=== PATIENT | female | born 1950 | race African-American/Black ===

== ENCOUNTER 2022-03-23 09:54 | Outpatient (CLI) | payer OTHER | END 2022-03-23 09:55 | disposition home or self-care (01) | LOC: BICMAMMO 09:54 | PROVIDERS: ATTEND Family Medicine | DX: Z12.31 Encounter for screening mammogram for malignant neoplasm of breast (principal) | CPT/HCPCS: 77063; 77067 ==

== ENCOUNTER 2023-02-09 10:09 | Inpatient (IN) | payer MEDICARE, MEDICAID ==
[2023-02-09 11:31] LABS: #Eosinphils 0.1 thou/uL (0.0-0.7); #Monocytes 0.3 thou/uL (0.11-0.59); #Neutrophils 1.9 thou/uL (1.40-6.50); %Basophils 0.2 % (0.0-1.0); %Lymphocytes 46.4 % (21.0-51.0); %Monocytes 6.7 % (0.0-10.0); %Neutrophils 43.5 % (42.0-75.0); Hemoglobin 5.7 g/dL (12.0-16.0); Mean Corpuscular HGB CONC 29.5 g/dL (32.0-36.0); Mean Corpuscular Hemoglobin 19.7 pg (27.0-31.0); Mean Corpuscular Volume 66.8 fl (78.0-98.0); Mean Platelet Volume 9.6 fL (7.4-10.4); Platelet Count 202 10x3/uL (130-400); RBC Distribution Width 21.2 % (11.5-14.5); Red Blood Cell (RBC) Count 2.89 mill/uL (4.20-5.40); White Blood Cell (WBC) Count 4.4 10x3/uL (4.8-10.8)
[2023-02-09 11:46] LABS: INR-International Normal Ratio 1.1; Prothrombin Time 14.4 sec (12.0-14.7)
[2023-02-09 11:47] LABS: PTT 29.6 sec (22.9-36.1)
[2023-02-09 12:00] LABS: ALT (SGPT) 16 U/L (8-55); AST (SGOT) 24 U/L (5-34); Albumin 3.6 g/dL (3.4-4.8); Alkaline Phosphatase 103 U/L (40-110); BUN (Urea Nitrogen) 6 mg/dL (9.8-20.1); Bilirubin, Total 0.5 mg/dL (0.2-1.2); Calc. Creatinine Clearance 0 mL/min (70-130); Calcium 8.6 mg/dL (7.8-10.44); Carbon Dioxide 23 mmol/L (23-31); Chloride 107 mmol/L (98-107); Estimated GFR 83; Globulin 3.4 g/dL (2.4-3.5); Glucose 104 mg/dL (83-110); Potassium 4.4 mmol/L (3.5-5.1)
[2023-02-09 12:13] LABS: Sodium 136 mmol/L (136-145)
[2023-02-09 12:14] LABS: Anisocytosis MODERATE=16-30 cells HPF (0-5); CellaVision Operator ID LAB.GE; Hypochromia MODERATE=16-30 cells HPF (0-5); Microcytosis MODERATE=15-30 cells HPF (0-5); Platelet Adequacy Comment Platelets Normal; Polychromasia MODERATE = 3-4 cells HPF (0-2); Reflex for Review?? YES; Target Cells SLIGHT = 2-5 cells HPF (0-1); Tear Drops SLIGHT = 2-5 cells HPF (0-1)
[2023-02-09] MEDS ORDERED: Ondansetron PF 4 MG/2 ML Vial ONE (12:19)
[2023-02-09] MEDS ORDERED: Pantoprazole 40 MG VIAL ONE ×2 (12:19→12:20)
[2023-02-09 12:26] LABS: Anion Gap 10 mmol/L (10-20)
[2023-02-09 12:52] LABS: CK (CPK) 90 U/L (29-168); Lipase 14 U/L (8-78)
[2023-02-09] MEDS ORDERED: Acetaminophen 500 MG TAB ONE (13:32)
[2023-02-09 15:10] LABS: Bacteria/HPF None Seen HPF (None Seen); Bilirubin Negative (Negative); Blood, Urine Negative (Negative); CAUTI Indications for Culture Pelvic or flank pain; Clarity Clear (Clear); Glucose, Urine (Dipstick) Normal (Negative); Ketone, Urine Negative (Negative); Leukocyte Negative Leu/uL (Negative); Nitrite Negative (Negative); Protein, Urine (Dipstick) Negative (Neg-Trace); RBC/HPF 0-3 HPF (0-3); Specific Gravity, Urine 1.009 (1.002-1.036); Squamous Epithelial 0-3 HPF (0-3); Urobilinogen Normal mg/dL (Less than 2); WBC/HPF 0-3 HPF (0-3); pH, Urine 6.5 (5.0-9.0)
[2023-02-09 15:19] LABS: Urine Culture Reflex No No
[2023-02-09 16:22] VITALS: BMI 28.6
[2023-02-09] MEDS ORDERED: Ondansetron ODT 4 MG TAB SL PRN (16:30)
[2023-02-09] MEDS ORDERED: Ondansetron PF 4 MG/2 ML Vial IVP PRN ×2 (16:30→19:12)
[2023-02-09 17:37] LABS: Hemoglobin 7.9 g/dL (12.0-16.0); Platelet Count 167 10x3/uL (130-400)
[2023-02-09] MEDS ORDERED: Acetaminophen 325 MG TAB PO PRN (19:12)
[2023-02-09] MEDS ORDERED: Acetaminophen 650 MG Suppository PR PRN (19:12)
[2023-02-09] MEDS ORDERED: Ondansetron ODT 4 MG TAB PO PRN (19:12)
[2023-02-09] MEDS ORDERED: Dextrose 5% in Water 1,000 ML IV PRN (19:15)
[2023-02-09] MEDS ORDERED: Dextrose 50% Abboject 50 ML SYRINGE SLOW IVP PRN (19:15)
[2023-02-09] MEDS ORDERED: Glucagon 1 MG/ML KIT IM PRN (19:15)
[2023-02-09] MEDS ORDERED: HumaLOG 300 UNITS/3 ML VIAL SC PRN ×2 (19:15)
[2023-02-09] MEDS ORDERED: Mometasone 200 MCG/Formoterol 5 MCG 120 PUFF INHALER INH SCH (19:45)
[2023-02-09] MEDS: Sodium Chloride 0.9% 1,000 ML IV SCH (19:48)
[2023-02-09] MEDS: hydrALAZINE 25 MG TAB PO SCH (19:48)
[2023-02-09] MEDS ORDERED: carBAMazepine 200 MG TAB PO SCH (20:00)
[2023-02-09] MEDS ORDERED: Pantoprazole 40 MG VIAL IVP SCH (21:00)
[2023-02-09] MEDS: Pantoprazole 40 MG VIAL IVP SCH (21:37)
[2023-02-09 22:40] LABS: Iron 349 ug/dL (50-170)
[2023-02-09 22:48] LABS: Anion Gap 13 mmol/L (10-20); BUN (Urea Nitrogen) 7 mg/dL (9.8-20.1); Calc. Creatinine Clearance 89 mL/min (70-130); Calcium 8.4 mg/dL (7.8-10.44); Carbon Dioxide 21 mmol/L (23-31); Chloride 107 mmol/L (98-107); Estimated GFR 80; Glucose 99 mg/dL (83-110); Iron 352 ug/dL (50-170); Potassium 4.9 mmol/L (3.5-5.1); Sodium 136 mmol/L (136-145)
[2023-02-09 23:13] LABS: Transferrin, Serum 381 mg/dL (173-360)
[2023-02-09 23:57] LABS: Hemoglobin 7.5 g/dL (12.0-16.0)
[2023-02-10 01:30] LABS: Iron Binding Capacity, Total 494 mcg/dL (265-497)
[2023-02-10] MEDS ORDERED: hydrOXYzine 25 MG TAB PO PRN (02:25)
[2023-02-10] MEDS: Mometasone 200 MCG/Formoterol 5 MCG 120 PUFF INHALER INH SCH ×2 (04:06→18:26)
[2023-02-10] MEDS: Ipratropium/Albuterol 3 ML NEB NEB PRN ×2 (04:09→18:27)
[2023-02-10 05:39] LABS: Hemoglobin 7.5 g/dL (12.0-16.0)
[2023-02-10] MEDS: carBAMazepine 200 MG TAB PO SCH ×2 (08:34→17:57)
[2023-02-10] MEDS: hydrALAZINE 25 MG TAB PO SCH ×2 (08:34→20:51)
[2023-02-10] MEDS: Pantoprazole 40 MG VIAL IVP SCH ×2 (08:35→20:52)
[2023-02-10] MEDS: Sodium Chloride 0.9% 1,000 ML IV SCH (09:38)
[2023-02-10] MEDS: HYDROcodone/Acetaminophen 10/325 mg Tablet PO PRN ×2 (11:53→20:50)
[2023-02-10] MEDS ORDERED: Guaifenesin DM 100-10/5 ML UDCUP PO PRN (13:36)
[2023-02-10 15:33] LABS: Hemoglobin 8.6 g/dL (12.0-16.0)
[2023-02-10] MEDS: Losartan 25 MG TAB PO SCH (20:51)
[2023-02-10] MEDS: Simvastatin 10 MG TAB PO SCH (20:51)
[2023-02-10] MEDS ORDERED: GoLYTELY 4,000 ml Bottle PO SCH (21:30)
[2023-02-11 06:00] LABS: Anion Gap 17 mmol/L (10-20); BUN (Urea Nitrogen) 5 mg/dL (9.8-20.1); Calc. Creatinine Clearance 95 mL/min (70-130); Calcium 8.9 mg/dL (7.8-10.44); Carbon Dioxide 22 mmol/L (23-31); Chloride 104 mmol/L (98-107); Estimated GFR 87; Glucose 100 mg/dL (83-110); Potassium 4.1 mmol/L (3.5-5.1); Sodium 139 mmol/L (136-145)
[2023-02-11 06:15] LABS: Hep B Surf Ag Non-Reactive S/CO (NonReactive)
[2023-02-11 06:17] LABS: HBSAB Concentration 52.63 mIU/mL; Hep B Surf AB Reactive (NonReactive)
[2023-02-11 06:33] LABS: Hemoglobin 9.2 g/dL (12.0-16.0); Mean Corpuscular HGB CONC 31.4 g/dL (32.0-36.0); Mean Corpuscular Volume 73.3 fl (78.0-98.0); Mean Platelet Volume 10.3 fL (7.4-10.4); Platelet Count 187 10x3/uL (130-400); White Blood Cell (WBC) Count 6.4 10x3/uL (4.8-10.8)
[2023-02-11] MEDS: Mometasone 200 MCG/Formoterol 5 MCG 120 PUFF INHALER INH SCH ×2 (08:18→18:26)
[2023-02-11] MEDS: Losartan 25 MG TAB PO SCH ×2 (09:15→20:20)
[2023-02-11] MEDS: Pantoprazole 40 MG VIAL IVP SCH ×3 (09:15→20:20)
[2023-02-11] MEDS: hydrALAZINE 25 MG TAB PO SCH ×2 (09:15→20:20)
[2023-02-11] MEDS: carBAMazepine 200 MG TAB PO SCH ×2 (09:15→16:23)
[2023-02-11] MEDS ORDERED: Promethazine HCl 25 MG/ML VIAL IM PRN (10:59)
[2023-02-11] MEDS ORDERED: Ondansetron HCl/PF 4 MG/2 ML Vial IVP PRN (10:59)
[2023-02-11] MEDS ORDERED: PROPOFOL 200 MG/20 ML VIAL ONE (11:11)
[2023-02-11] MEDS ORDERED: PHENYLEPHRINE-NS 100 MCG/ML 10 ML SYRINGE ONE (11:11)
[2023-02-11] MEDS ORDERED: Lidocaine 1% PF 5 ML VIAL ONE ×2 (11:11)
[2023-02-11 13:37] LABS: EliA Vaculitis New Method **** NEW METHOD ****; Mitochondrial Ab 0.9 U/mL (<4 Negative)
[2023-02-11] MEDS: HYDROcodone/Acetaminophen 10/325 mg Tablet PO PRN ×2 (15:05→20:22)
[2023-02-11] MEDS: Simvastatin 10 MG TAB PO SCH (20:20)
[2023-02-12 04:20] LABS: #Eosinphils 0.1 thou/uL (0.0-0.7); #Monocytes 0.5 thou/uL (0.11-0.59); #Neutrophils 2.6 thou/uL (1.40-6.50); %Basophils 0.4 % (0.0-1.0); %Lymphocytes 41.9 % (21.0-51.0); %Monocytes 8.2 % (0.0-10.0); %Neutrophils 47.3 % (42.0-75.0); Hemoglobin 7.7 g/dL (12.0-16.0); Mean Corpuscular Hemoglobin 22.7 pg (27.0-31.0); Mean Corpuscular Volume 73.2 fl (78.0-98.0); Mean Platelet Volume 9.5 fL (7.4-10.4); Platelet Count 175 10x3/uL (130-400); RBC Distribution Width 25.4 % (11.5-14.5); Red Blood Cell (RBC) Count 3.39 mill/uL (4.20-5.40); White Blood Cell (WBC) Count 5.6 10x3/uL (4.8-10.8)
[2023-02-12 04:21] LABS: Hemoglobin 7.8 g/dL (12.0-16.0); Mean Corpuscular HGB CONC 30.8 g/dL (32.0-36.0); Mean Corpuscular Hemoglobin 22.3 pg (27.0-31.0); Mean Corpuscular Volume 72.5 fl (78.0-98.0); Mean Platelet Volume 9.4 fL (7.4-10.4); Platelet Count 189 10x3/uL (130-400); RBC Distribution Width 25.4 % (11.5-14.5); Red Blood Cell (RBC) Count 3.49 mill/uL (4.20-5.40); White Blood Cell (WBC) Count 5.5 10x3/uL (4.8-10.8)
[2023-02-12 04:41] LABS: Anion Gap 13 mmol/L (10-20); BUN (Urea Nitrogen) 8 mg/dL (9.8-20.1); Calc. Creatinine Clearance 85 mL/min (70-130); Calcium 8.4 mg/dL (7.8-10.44); Carbon Dioxide 24 mmol/L (23-31); Chloride 108 mmol/L (98-107); Estimated GFR 75; Glucose 103 mg/dL (83-110); Potassium 3.9 mmol/L (3.5-5.1); Sodium 141 mmol/L (136-145)
[2023-02-12 04:49] LABS: Anisocytosis MODERATE=16-30 cells HPF (0-5); CellaVision Operator ID lab.abc; Hypochromia SLIGHT = 6-15 cells HPF (0-5); Large Platelets 4.1 % (0-5); Microcytosis SLIGHT = 6-15 cells HPF (0-5); Platelet Adequacy Comment Platelets Normal; Polychromasia SLIGHT = 2-3 cells HPF (0-2); Smudge Cells 29.6 %
[2023-02-12] MEDS: Mometasone 200 MCG/Formoterol 5 MCG 120 PUFF INHALER INH SCH (07:26)
[2023-02-12 08:34] VITALS: TEMP 98
[2023-02-12] MEDS: hydrALAZINE 25 MG TAB PO SCH (08:55)
[2023-02-12] MEDS: Losartan 25 MG TAB PO SCH (08:55)
[2023-02-12] MEDS: carBAMazepine 200 MG TAB PO SCH (08:55)
[2023-02-12] MEDS: Pantoprazole 40 MG VIAL IVP SCH ×2 (08:56→09:58)
[2023-02-12] MEDS: HYDROcodone/Acetaminophen 10/325 mg Tablet PO PRN (10:36)
[2023-02-12 13:30] VITALS: BP 138/69
[2023-02-14 17:13] LABS: Smooth Muscle Total ABS 11 Units (0-19)
[2023-02-17 08:39] LABS: Alpha-1-Antitrypsin 206 mg/dL (101-187)
== END 2023-02-12 11:59 | disposition home or self-care (01) | DRG 378 ==
LOC: ERS 10:09 → T4-B 16:16 → 2SW 21:06
PROVIDERS: ADMIT Emergency Medicine; ATTEND Internal Medicine
PROC: 30233N1 Transfusion of Nonautologous Red Blood Cells into Peripheral Vein, Percutaneous Approach (ICD-10-PCS; principal; 2023-02-09)
PROC: 0W3P8ZZ Control Bleeding in Gastrointestinal Tract, Via Natural or Artificial Opening Endoscopic (ICD-10-PCS; 2023-02-11)
PROC: 0W3P8ZZ Control Bleeding in Gastrointestinal Tract, Via Natural or Artificial Opening Endoscopic (ICD-10-PCS; 2023-02-11)
DX: K31.811 Angiodysplasia of stomach and duodenum with bleeding (principal); D62 Acute posthemorrhagic anemia; I25.10 Atherosclerotic heart disease of native coronary artery without angina pectoris; E11.9 Type 2 diabetes mellitus without complications; E78.5 Hyperlipidemia, unspecified; I10 Essential (primary) hypertension; G43.909 Migraine, unspecified, not intractable, without status migrainosus; D50.9 Iron deficiency anemia, unspecified; K74.60 Unspecified cirrhosis of liver; J44.9 Chronic obstructive pulmonary disease, unspecified; Z95.1 Presence of aortocoronary bypass graft; Z98.890 Other specified postprocedural states; Z88.8 Allergy status to other drugs, medicaments and biological substances; Z88.1 Allergy status to other antibiotic agents; Z79.82 Long term (current) use of aspirin; Z79.899 Other long term (current) drug therapy; Z87.891 Personal history of nicotine dependence
CPT/HCPCS: 36415; 36416; 36430; 71045; 76705; 80048; 80053; 81001; 81256; 82103; 82105; 82274; 82550; 82728; 83516; 83540; 83550; 83690; 84466; 84484; 85014; 85018; 85025; 85027; 85060; 85610; 85730; 86015; 86706; 86708; 86850; 86900; 86901; 87340; 87522; 93005; 93010; 94640; 94760; C9113; J2405; J2704; J7050; J7611; J7620; P9016

== ENCOUNTER 2023-02-24 10:43 | Inpatient (IN) | payer MEDICARE, MEDICAID ==
[~2023-02-24 10:43] MED LIST: Iopamidol 370 76% 100 ML VIAL ONE
[2023-02-24] MEDS ORDERED: Midazolam HCl 2 mg/2 ml Vial ONE (11:16)
[2023-02-24] MEDS ORDERED: Adenosine 6 MG/2 ML VIAL ONE (11:58)
[2023-02-24] MEDS ORDERED: fentaNYL 50 mcg/mL 1 mL Vial ONE (11:59)
[2023-02-24] MEDS ORDERED: Morphine 4 MG/ML VIAL SLOW IVP PRN (13:27)
[2023-02-24] MEDS ORDERED: Sodium Chloride 0.9% 1,000 ML IV SCH (13:30)
[2023-02-24] MEDS ORDERED: Morphine 4 MG/ML VIAL ONE (13:37)
[2023-02-24 14:16] LABS: #Monocytes 0.5 thou/uL (0.11-0.59); #Neutrophils 3.5 thou/uL (1.40-6.50); %Basophils 0.2 % (0.0-1.0); %Eosinophils 0.3 % (0.0-10.0); %Lymphocytes 36.2 % (21.0-51.0); %Monocytes 7.6 % (0.0-10.0); %Neutrophils 55.4 % (42.0-75.0); Hemoglobin 7.8 g/dL (12.0-16.0); Mean Corpuscular HGB CONC 30.2 g/dL (32.0-36.0); Mean Corpuscular Hemoglobin 21.6 pg (27.0-31.0); Mean Corpuscular Volume 71.5 fl (78.0-98.0); Mean Platelet Volume 9.8 fL (7.4-10.4); Platelet Count 247 10x3/uL (130-400); RBC Distribution Width 26.2 % (11.5-14.5); Red Blood Cell (RBC) Count 3.61 mill/uL (4.20-5.40); White Blood Cell (WBC) Count 6.2 10x3/uL (4.8-10.8)
[2023-02-24 14:36] LABS: INR-International Normal Ratio 1.1; Prothrombin Time 14.7 sec (12.0-14.7)
[2023-02-24 14:39] LABS: ALT (SGPT) 28 U/L (8-55); AST (SGOT) 171 U/L (5-34); Albumin 3.2 g/dL (3.4-4.8); Alkaline Phosphatase 88 U/L (40-110); Anion Gap 12 mmol/L (10-20); BUN (Urea Nitrogen) 11 mg/dL (9.8-20.1); Bilirubin, Total 0.6 mg/dL (0.2-1.2); Calc. Creatinine Clearance 0 mL/min (70-130); Calcium 8.3 mg/dL (7.8-10.44); Carbon Dioxide 23 mmol/L (23-31); Chloride 105 mmol/L (98-107); Estimated GFR 93; Globulin 2.8 g/dL (2.4-3.5); Glucose 127 mg/dL (83-110); PTT 101.9 sec (22.9-36.1); Potassium 3.8 mmol/L (3.5-5.1); Sodium 136 mmol/L (136-145)
[2023-02-24 15:24] LABS: CKMB 367.1 ng/mL (0-6.6)
[2023-02-24] MEDS ORDERED: HumaLOG 300 UNITS/3 ML VIAL SC PRN ×2 (15:58)
[2023-02-24] MEDS ORDERED: Dextrose 50% Abboject 50 ML SYRINGE SLOW IVP PRN (15:58)
[2023-02-24] MEDS ORDERED: Glucagon 1 MG/ML KIT IM PRN (15:58)
[2023-02-24] MEDS ORDERED: Dextrose 5% in Water 1,000 ML IV PRN (15:58)
[2023-02-24] MEDS ORDERED: Electrolyte Replacement Protocol 1 EACH FS SCH (16:00)
[2023-02-24] MEDS ORDERED: Ipratropium Bromide 2.5 ml Neb NEB PRN (16:02)
[2023-02-24] MEDS: Morphine 2 MG/ML VIAL SLOW IVP PRN (16:36)
[2023-02-24] MEDS: Carvedilol 3.125 MG TAB PO SCH (17:55)
[2023-02-24] MEDS: Mometasone 200 MCG/Formoterol 5 MCG 120 PUFF INHALER INH SCH (18:37)
[2023-02-24 19:26] VITALS: BMI 26.7
[2023-02-24] MEDS ORDERED: Mag-Al 1200 mg/1200 mg/30 ML UDCUP PO SCH (20:15)
[2023-02-24] MEDS: HYDROcodone/Acetaminophen 7.5/325 mg Tablet PO PRN (21:48)
[2023-02-24 21:58] LABS: CKMB 470.6 ng/mL (0-6.6)
[2023-02-24] MEDS ORDERED: Magnesium 2 GM/50 ML(in water) 2 GM in Premix Bag 1 BAG IVPB SCH (23:00)
[2023-02-24 23:43] LABS: CKMB 453.3 ng/mL (0-6.6)
[2023-02-25] MEDS: Ondansetron PF 4 MG/2 ML Vial IVP PRN ×2 (00:06→19:08)
[2023-02-25 02:15] LABS: #Monocytes 0.8 thou/uL (0.11-0.59); #Neutrophils 5.4 thou/uL (1.40-6.50); %Basophils 0.1 % (0.0-1.0); %Eosinophils 0.4 % (0.0-10.0); %Lymphocytes 21.2 % (21.0-51.0); %Monocytes 10.4 % (0.0-10.0); %Neutrophils 67.5 % (42.0-75.0); Hemoglobin 9.1 g/dL (12.0-16.0); Mean Corpuscular HGB CONC 29.5 g/dL (32.0-36.0); Mean Corpuscular Hemoglobin 22.2 pg (27.0-31.0); Mean Platelet Volume 9.6 fL (7.4-10.4); Platelet Count 193 10x3/uL (130-400); RBC Distribution Width 27.5 % (11.5-14.5); Red Blood Cell (RBC) Count 4.09 mill/uL (4.20-5.40); White Blood Cell (WBC) Count 7.9 10x3/uL (4.8-10.8)
[2023-02-25 02:21] LABS: Mean Corpuscular Volume 75.3 fl (78.0-98.0)
[2023-02-25 03:56] LABS: ALT (SGPT) 47 U/L (8-55); AST (SGOT) 330 U/L (5-34); Albumin 3.4 g/dL (3.4-4.8); Alkaline Phosphatase 98 U/L (40-110); Anion Gap 14 mmol/L (10-20); BUN (Urea Nitrogen) 12 mg/dL (9.8-20.1); Bilirubin, Total 0.7 mg/dL (0.2-1.2); Calc. Creatinine Clearance 98 mL/min (70-130); Calcium 8.8 mg/dL (7.8-10.44); Carbon Dioxide 21 mmol/L (23-31); Cardiac Risk 1.9 (Less than 4.5); Chloride 105 mmol/L (98-107); Cholesterol 143 mg/dl (< 200 Desired); Estimated GFR 91; Globulin 3.2 g/dL (2.4-3.5); Glucose 117 mg/dL (83-110); HDL Cholesterol 77 mg/dL (>60 Neg Risk); LDL Cholesterol, Calculated 52 mg/dL; Magnesium 2.4 mg/dL (1.6-2.6); Potassium 4.5 mmol/L (3.5-5.1); Protein, Total 6.6 g/dL (5.8-8.1); Sodium 135 mmol/L (136-145); Triglycerides 70 mg/dL (Less than 150)
[2023-02-25] MEDS: Mometasone 200 MCG/Formoterol 5 MCG 120 PUFF INHALER INH SCH ×2 (07:20→18:39)
[2023-02-25] MEDS: Carvedilol 3.125 MG TAB PO SCH ×2 (08:00→18:32)
[2023-02-25] MEDS: HYDROcodone/Acetaminophen 7.5/325 mg Tablet PO PRN (09:16)
[2023-02-25] MEDS: Aspirin Chewable 81 MG TAB PO SCH (09:18)
[2023-02-25] MEDS ORDERED: Losartan 25 MG TAB PO SCH (10:00)
[2023-02-25] MEDS: Morphine 2 MG/ML VIAL SLOW IVP PRN (15:25)
[2023-02-25] MEDS: Atorvastatin Calcium 40 MG TAB PO SCH (20:37)
[2023-02-26 00:05] LABS: CKMB 418.8 ng/mL (0-6.6)
[2023-02-26] MEDS: HYDROcodone/Acetaminophen 7.5/325 mg Tablet PO PRN ×3 (01:09→21:42)
[2023-02-26 03:02] LABS: #Neutrophils 5.2 thou/uL (1.40-6.50); %Basophils 0.3 % (0.0-1.0); %Eosinophils 0.5 % (0.0-10.0); %Lymphocytes 21.1 % (21.0-51.0); %Monocytes 12.1 % (0.0-10.0); %Neutrophils 65.7 % (42.0-75.0); Mean Corpuscular HGB CONC 30.3 g/dL (32.0-36.0); Mean Corpuscular Hemoglobin 21.7 pg (27.0-31.0); Mean Corpuscular Volume 71.7 fl (78.0-98.0); Mean Platelet Volume 9.4 fL (7.4-10.4); Platelet Count 243 10x3/uL (130-400); RBC Distribution Width 26.3 % (11.5-14.5); Red Blood Cell (RBC) Count 3.68 mill/uL (4.20-5.40); White Blood Cell (WBC) Count 7.9 10x3/uL (4.8-10.8)
[2023-02-26 03:36] LABS: Anion Gap 12 mmol/L (10-20); BUN (Urea Nitrogen) 15 mg/dL (9.8-20.1); Calc. Creatinine Clearance 106 mL/min (70-130); Calcium 8.3 mg/dL (7.8-10.44); Carbon Dioxide 22 mmol/L (23-31); Chloride 106 mmol/L (98-107); Estimated GFR 93; Glucose 125 mg/dL (83-110); Potassium 4.1 mmol/L (3.5-5.1); Sodium 136 mmol/L (136-145)
[2023-02-26 04:02] LABS: Anisocytosis MODERATE=16-30 cells HPF (0-5); CellaVision Operator ID LAB.JMM; Elliptocytes SLIGHT = 2-5 cells HPF (0-1); Hypochromia MODERATE=16-30 cells HPF (0-5); Macrocytosis SLIGHT = 6-15 cells HPF (0-5); Platelet Adequacy Comment Platelets Normal
[2023-02-26] MEDS: Mometasone 200 MCG/Formoterol 5 MCG 120 PUFF INHALER INH SCH (06:51)
[2023-02-26] MEDS: Carvedilol 3.125 MG TAB PO SCH ×2 (08:00→17:00)
[2023-02-26] MEDS: Losartan 25 MG TAB PO SCH (09:59)
[2023-02-26] MEDS: Aspirin Chewable 81 MG TAB PO SCH (10:03)
[2023-02-26 10:21] LABS: Troponin I 39.609 ng/mL (< 0.028)
[2023-02-26] MEDS: Guaifenesin DM 100-10/5 ML UDCUP PO PRN (12:39)
[2023-02-26 14:14] LABS: Hemoglobin 7.7 g/dL (12.0-16.0)
[2023-02-26] MEDS: Ipratropium Bromide 2.5 ml Neb NEB SCH (18:44)
[2023-02-26] MEDS: Mometasone 100 MCG/Formoterol 5 MCG 120 PUFF INHALER INH SCH (18:51)
[2023-02-26] MEDS: Atorvastatin Calcium 40 MG TAB PO SCH (21:42)
[2023-02-27 04:13] LABS: #Eosinphils 0.1 thou/uL (0.0-0.7); #Monocytes 0.9 thou/uL (0.11-0.59); #Neutrophils 4.4 thou/uL (1.40-6.50); %Basophils 0.3 % (0.0-1.0); %Lymphocytes 31.6 % (21.0-51.0); %Neutrophils 55.8 % (42.0-75.0); Hemoglobin 8.1 g/dL (12.0-16.0); Mean Corpuscular HGB CONC 30.3 g/dL (32.0-36.0); Mean Corpuscular Hemoglobin 21.7 pg (27.0-31.0); Mean Corpuscular Volume 71.4 fl (78.0-98.0); Mean Platelet Volume 9.5 fL (7.4-10.4); Platelet Count 229 10x3/uL (130-400); Red Blood Cell (RBC) Count 3.74 mill/uL (4.20-5.40); White Blood Cell (WBC) Count 7.8 10x3/uL (4.8-10.8)
[2023-02-27 04:43] LABS: Anion Gap 11 mmol/L (10-20); BUN (Urea Nitrogen) 15 mg/dL (9.8-20.1); Calc. Creatinine Clearance 107 mL/min (70-130); Calcium 8.1 mg/dL (7.8-10.44); Carbon Dioxide 23 mmol/L (23-31); Chloride 105 mmol/L (98-107); Estimated GFR 93; Glucose 137 mg/dL (83-110); Potassium 4.1 mmol/L (3.5-5.1); Sodium 135 mmol/L (136-145)
[2023-02-27 05:19] LABS: Anisocytosis MODERATE=16-30 cells HPF (0-5); Burr Cells SLIGHT = 2-5 cells HPF (0-1); CellaVision Operator ID lab.abc; Hypochromia SLIGHT = 6-15 cells HPF (0-5); Microcytosis SLIGHT = 6-15 cells HPF (0-5); Platelet Adequacy Comment Platelets Normal
[2023-02-27] MEDS: HYDROcodone/Acetaminophen 7.5/325 mg Tablet PO PRN ×2 (05:47→21:17)
[2023-02-27] MEDS: Mometasone 100 MCG/Formoterol 5 MCG 120 PUFF INHALER INH SCH ×2 (07:38→18:19)
[2023-02-27] MEDS: Ipratropium Bromide 2.5 ml Neb NEB SCH ×2 (07:38→18:11)
[2023-02-27] MEDS: Aspirin Chewable 81 MG TAB PO SCH (09:33)
[2023-02-27] MEDS: Carvedilol 3.125 MG TAB PO SCH ×2 (09:33→19:43)
[2023-02-27] MEDS: Losartan 25 MG TAB PO SCH (09:34)
[2023-02-27] MEDS ORDERED: Senokot 8.6 MG TAB PO PRN (19:04)
[2023-02-27] MEDS ORDERED: Polyethylene Glycol 3350 17 GM Packet PO PRN (19:04)
[2023-02-27] MEDS: Atorvastatin Calcium 40 MG TAB PO SCH (21:16)
[2023-02-27] MEDS: Docusate 100 MG CAP PO PRN (21:16)
[2023-02-28 04:11] LABS: #Eosinphils 0.1 thou/uL (0.0-0.7); #Monocytes 0.9 thou/uL (0.11-0.59); #Neutrophils 4.8 thou/uL (1.40-6.50); %Basophils 0.2 % (0.0-1.0); %Eosinophils 0.8 % (0.0-10.0); %Lymphocytes 31.2 % (21.0-51.0); %Monocytes 10.1 % (0.0-10.0); %Neutrophils 57.3 % (42.0-75.0); Mean Corpuscular HGB CONC 29.6 g/dL (32.0-36.0); Mean Corpuscular Hemoglobin 21.7 pg (27.0-31.0); Mean Corpuscular Volume 73.4 fl (78.0-98.0); Mean Platelet Volume 9.6 fL (7.4-10.4); Platelet Count 236 10x3/uL (130-400); RBC Distribution Width 26.4 % (11.5-14.5); Red Blood Cell (RBC) Count 3.68 mill/uL (4.20-5.40); White Blood Cell (WBC) Count 8.5 10x3/uL (4.8-10.8)
[2023-02-28 04:32] LABS: Anion Gap 15 mmol/L (10-20); BUN (Urea Nitrogen) 16 mg/dL (9.8-20.1); Calc. Creatinine Clearance 111 mL/min (70-130); Calcium 8.4 mg/dL (7.8-10.44); Carbon Dioxide 19 mmol/L (23-31); Chloride 105 mmol/L (98-107); Estimated GFR 94; Glucose 105 mg/dL (83-110); Sodium 135 mmol/L (136-145)
[2023-02-28 06:36] LABS: Anisocytosis MODERATE=16-30 cells HPF (0-5); Burr Cells MODERATE= 6-15 cells HPF (0-1); CellaVision Operator ID LAB.GE; Hypochromia SLIGHT = 6-15 cells HPF (0-5); Platelet Adequacy Comment Platelets Normal; Poikilocytosis SLIGHT = 6-15 cells HPF (0-5); Polychromasia SLIGHT = 2-3 cells HPF (0-2)
[2023-02-28] MEDS: Mometasone 100 MCG/Formoterol 5 MCG 120 PUFF INHALER INH SCH ×2 (07:36→18:48)
[2023-02-28] MEDS: Ipratropium Bromide 2.5 ml Neb NEB SCH ×2 (07:36→18:48)
[2023-02-28] MEDS: Carvedilol 3.125 MG TAB PO SCH ×2 (08:36→16:48)
[2023-02-28] MEDS: Empagliflozin 10 MG TAB PO SCH (08:36)
[2023-02-28] MEDS: Aspirin Chewable 81 MG TAB PO SCH (08:36)
[2023-02-28] MEDS: Docusate 100 MG CAP PO PRN (08:36)
[2023-02-28] MEDS ORDERED: Bisacodyl 10 MG SUPP PR PRN (09:07)
[2023-02-28] MEDS ORDERED: Benzonatate 100 MG CAP PO SCH (11:30)
[2023-02-28] MEDS: Benzonatate 100 MG CAP PO SCH ×3 (16:22→23:11)
[2023-02-28] MEDS: HYDROcodone/Acetaminophen 7.5/325 mg Tablet PO PRN (20:20)
[2023-02-28] MEDS: Atorvastatin Calcium 40 MG TAB PO SCH (20:21)
[2023-02-28] MEDS: Sacubitril 24MG/Valsartan 26 MG TAB PO SCH (20:21)
[2023-03-01] MEDS ORDERED: carBAMazepine 200 MG TAB PO SCH (00:45)
[2023-03-01] MEDS: Guaifenesin DM 100-10/5 ML UDCUP PO PRN (04:06)
[2023-03-01 05:49] LABS: #Eosinphils 0.1 thou/uL (0.0-0.7); #Monocytes 0.6 thou/uL (0.11-0.59); #Neutrophils 3.5 thou/uL (1.40-6.50); %Basophils 0.2 % (0.0-1.0); %Eosinophils 1.4 % (0.0-10.0); %Lymphocytes 33.5 % (21.0-51.0); %Monocytes 9.2 % (0.0-10.0); %Neutrophils 55.5 % (42.0-75.0); Mean Corpuscular HGB CONC 30.4 g/dL (32.0-36.0); Mean Corpuscular Hemoglobin 21.5 pg (27.0-31.0); Mean Corpuscular Volume 70.7 fl (78.0-98.0); Platelet Count 262 10x3/uL (130-400); RBC Distribution Width 26.1 % (11.5-14.5); Red Blood Cell (RBC) Count 3.72 mill/uL (4.20-5.40); White Blood Cell (WBC) Count 6.3 10x3/uL (4.8-10.8)
[2023-03-01 06:20] LABS: Anion Gap 16 mmol/L (10-20); BUN (Urea Nitrogen) 17 mg/dL (9.8-20.1); Calc. Creatinine Clearance 88 mL/min (70-130); Calcium 8.6 mg/dL (7.8-10.44); Carbon Dioxide 20 mmol/L (23-31); Chloride 104 mmol/L (98-107); Estimated GFR 92; Glucose 101 mg/dL (83-110); Potassium 3.7 mmol/L (3.5-5.1); Sodium 136 mmol/L (136-145)
[2023-03-01] MEDS: Mometasone 100 MCG/Formoterol 5 MCG 120 PUFF INHALER INH SCH ×2 (07:06→19:08)
[2023-03-01 07:46] LABS: CellaVision Operator ID LAB.GE; Hypochromia SLIGHT = 6-15 cells HPF (0-5); Platelet Adequacy Comment Platelets Normal; Polychromasia MODERATE = 3-4 cells HPF (0-2); Target Cells SLIGHT = 2-5 cells HPF (0-1)
[2023-03-01] MEDS: Sacubitril 24MG/Valsartan 26 MG TAB PO SCH ×2 (08:54→20:30)
[2023-03-01] MEDS: Benzonatate 100 MG CAP PO SCH ×3 (08:54→20:30)
[2023-03-01] MEDS: carBAMazepine 200 MG TAB PO SCH ×2 (08:54→20:30)
[2023-03-01] MEDS: Aspirin Chewable 81 MG TAB PO SCH (08:54)
[2023-03-01] MEDS: Carvedilol 3.125 MG TAB PO SCH ×2 (08:54→16:12)
[2023-03-01] MEDS: Polyethylene Glycol 3350 17 GM Packet PO SCH (08:55)
[2023-03-01] MEDS: Empagliflozin 10 MG TAB PO SCH (08:55)
[2023-03-01] MEDS: Ipratropium Bromide 2.5 ml Neb NEB SCH ×2 (10:31→19:08)
[2023-03-01] MEDS: HYDROcodone/Acetaminophen 7.5/325 mg Tablet PO PRN (12:46)
[2023-03-01] MEDS: Atorvastatin Calcium 40 MG TAB PO SCH (20:30)
[2023-03-02] MEDS: HYDROcodone/Acetaminophen 7.5/325 mg Tablet PO PRN ×2 (02:53→20:58)
[2023-03-02 04:19] LABS: #Eosinphils 0.1 thou/uL (0.0-0.7); #Monocytes 0.6 thou/uL (0.11-0.59); #Neutrophils 3.1 thou/uL (1.40-6.50); %Basophils 0.2 % (0.0-1.0); %Eosinophils 1.6 % (0.0-10.0); %Lymphocytes 32.1 % (21.0-51.0); %Monocytes 10.5 % (0.0-10.0); %Neutrophils 55.2 % (42.0-75.0); Hemoglobin 8.3 g/dL (12.0-16.0); Mean Corpuscular HGB CONC 30.5 g/dL (32.0-36.0); Mean Corpuscular Hemoglobin 21.5 pg (27.0-31.0); Mean Corpuscular Volume 70.5 fl (78.0-98.0); Mean Platelet Volume 9.6 fL (7.4-10.4); Platelet Count 270 10x3/uL (130-400); Red Blood Cell (RBC) Count 3.86 mill/uL (4.20-5.40); White Blood Cell (WBC) Count 5.5 10x3/uL (4.8-10.8)
[2023-03-02 04:43] LABS: Anion Gap 13 mmol/L (10-20); BUN (Urea Nitrogen) 14 mg/dL (9.8-20.1); Calc. Creatinine Clearance 90 mL/min (70-130); Calcium 8.3 mg/dL (7.8-10.44); Carbon Dioxide 21 mmol/L (23-31); Chloride 106 mmol/L (98-107); Estimated GFR 92; Glucose 99 mg/dL (83-110); Potassium 3.8 mmol/L (3.5-5.1); Sodium 136 mmol/L (136-145)
[2023-03-02 04:50] LABS: Manual Diff?? YES
[2023-03-02 07:03] LABS: Anisocytosis MODERATE=16-30 cells HPF (0-5); CellaVision Operator ID LAB.GE; Eosinophils 3 % (0-10); Hypochromia SLIGHT = 6-15 cells HPF (0-5); Large Platelets 4.1 % (0-5); Lymphocytes 13 % (21-51); Monocytes 1 % (0-10); Neutrophil 81 % (42-75); Nucleated RBC (Manual Ct) 1 % (0); Platelet Adequacy Comment Platelets Normal; Polychromasia MODERATE = 3-4 cells HPF (0-2); Reactive Lymphocytes 1 % (0-10); Total Cell Count 98
[2023-03-02] MEDS: Mometasone 100 MCG/Formoterol 5 MCG 120 PUFF INHALER INH SCH ×2 (07:43→19:48)
[2023-03-02] MEDS: Ipratropium Bromide 2.5 ml Neb NEB SCH ×2 (07:44→19:48)
[2023-03-02] MEDS: Benzonatate 100 MG CAP PO SCH ×3 (08:16→20:56)
[2023-03-02] MEDS: Aspirin Chewable 81 MG TAB PO SCH (08:17)
[2023-03-02] MEDS: Empagliflozin 10 MG TAB PO SCH (08:17)
[2023-03-02] MEDS: Carvedilol 3.125 MG TAB PO SCH ×2 (08:17→16:22)
[2023-03-02] MEDS: Sacubitril 24MG/Valsartan 26 MG TAB PO SCH ×2 (08:17→20:56)
[2023-03-02] MEDS: Polyethylene Glycol 3350 17 GM Packet PO SCH (08:17)
[2023-03-02] MEDS: carBAMazepine 200 MG TAB PO SCH ×2 (08:17→20:57)
[2023-03-02] MEDS ORDERED: Sodium Bicarbonate 2.5 MEQ/5 ML VIAL ONE (14:11)
[2023-03-02] MEDS ORDERED: Lidocaine 1% PF 5 ML VIAL ONE (14:11)
[2023-03-02] MEDS: Atorvastatin Calcium 40 MG TAB PO SCH (20:56)
[2023-03-02] MEDS: Docusate 100 MG CAP PO PRN (21:02)
[2023-03-03] MEDS: Ipratropium Bromide 2.5 ml Neb NEB SCH ×2 (07:19→17:50)
[2023-03-03] MEDS: Mometasone 100 MCG/Formoterol 5 MCG 120 PUFF INHALER INH SCH ×2 (07:20→17:51)
[2023-03-03] MEDS: Polyethylene Glycol 3350 17 GM Packet PO SCH (09:55)
[2023-03-03] MEDS: Sacubitril 24MG/Valsartan 26 MG TAB PO SCH (10:05)
[2023-03-03] MEDS: Benzonatate 100 MG CAP PO SCH ×2 (10:06→16:47)
[2023-03-03] MEDS: carBAMazepine 200 MG TAB PO SCH (10:07)
[2023-03-03] MEDS: HYDROcodone/Acetaminophen 7.5/325 mg Tablet PO PRN (10:07)
[2023-03-03] MEDS: Empagliflozin 10 MG TAB PO SCH (10:08)
[2023-03-03] MEDS: Aspirin Chewable 81 MG TAB PO SCH (10:08)
[2023-03-03] MEDS: Carvedilol 3.125 MG TAB PO SCH ×2 (10:08→16:48)
[2023-03-03 15:25] VITALS: BP 90/56; TEMP 98
== END 2023-03-03 16:56 | disposition home health service (06) | DRG 250 ==
LOC: ERS 10:43 → CCL 12:45 → CCU 12:46 → 2NO 02-28 18:11
PROVIDERS: ADMIT Internal Medicine Cardiovascular Disease; ATTEND Internal Medicine Cardiovascular Disease
PROC: 4A023N7 Measurement of Cardiac Sampling and Pressure, Left Heart, Percutaneous Approach (ICD-10-PCS; principal; 2023-02-24)
PROC: 02703ZZ Dilation of Coronary Artery, One Artery, Percutaneous Approach (ICD-10-PCS; 2023-02-24)
PROC: 02C03ZZ Extirpation of Matter from Coronary Artery, One Artery, Percutaneous Approach (ICD-10-PCS; 2023-02-24)
PROC: B2111ZZ Fluoroscopy of Multiple Coronary Arteries using Low Osmolar Contrast (ICD-10-PCS; 2023-02-24)
PROC: B2131ZZ Fluoroscopy of Multiple Coronary Artery Bypass Grafts using Low Osmolar Contrast (ICD-10-PCS; 2023-02-24)
PROC: B2181ZZ Fluoroscopy of Left Internal Mammary Bypass Graft using Low Osmolar Contrast (ICD-10-PCS; 2023-02-24)
PROC: B2151ZZ Fluoroscopy of Left Heart using Low Osmolar Contrast (ICD-10-PCS; 2023-02-24)
DX: T82.898A Other specified complication of vascular prosthetic devices, implants and grafts, initial encounter (principal); I21.19 ST elevation (STEMI) myocardial infarction involving other coronary artery of inferior wall; I25.10 Atherosclerotic heart disease of native coronary artery without angina pectoris; E11.9 Type 2 diabetes mellitus without complications; E78.00 Pure hypercholesterolemia, unspecified; J45.909 Unspecified asthma, uncomplicated; K74.60 Unspecified cirrhosis of liver; J44.9 Chronic obstructive pulmonary disease, unspecified; G40.909 Epilepsy, unspecified, not intractable, without status epilepticus; I25.5 Ischemic cardiomyopathy; Z79.82 Long term (current) use of aspirin; Z79.899 Other long term (current) drug therapy; Z87.891 Personal history of nicotine dependence; Z95.5 Presence of coronary angioplasty implant and graft; Z95.1 Presence of aortocoronary bypass graft; Z98.890 Other specified postprocedural states
CPT/HCPCS: 36415; 36416; 71045; 74176; 80048; 80053; 80061; 82553; 83735; 84484; 85025; 85347; 85610; 85730; 86850; 86900; 86901; 92920; 92973; 93005; 93010; 93306; 93455; 94640; 96374; 99152; 99153; C1725; C1757; C1769; C1887; J0153; J2250; J2270; J2272; J2405; J3010; J3475; Q9967

== ENCOUNTER → 2024-07-11 | Outpatient (CLI) | payer OTHER, MEDICAID | LOC: BICMAMMO 09:24 | PROVIDERS: ATTEND Family Medicine | DX: Z12.31 Encounter for screening mammogram for malignant neoplasm of breast (principal) | CPT/HCPCS: 77063; 77067 ==

== ENCOUNTER 2025-05-22 12:24 | Inpatient (IN) | payer OTHER ==
[2025-05-22 13:19] LABS: #Basophils 0.03 10x3/uL (0.0-0.2); #Eosinophils Less than 0.03 10x3/uL (0.0-0.7); #Monocytes 0.93 10x3/uL (0.11-0.59); #Neutrophils 7.58 10x3/uL (1.40-6.50); %Basophils 0.3 % (0.0-1.0); %Eosinophils 0.2 % (0.0-10.0); %Lymphocytes 21.1 % (21.0-51.0); %Monocytes 8.5 % (0.0-10.0); %Neutrophils 69.4 % (42.0-75.0); Hematocrit 35.7 % (36.0-47.0); Hemoglobin 11.9 g/dL (12.0-16.0); Mean Corpuscular Hemoglobin 29.3 pg (27.0-31.0); Mean Corpuscular Volume 87.9 fL (78.0-98.0); Platelet Count 122 10x3/uL (130-400); Red Blood Cell (RBC) Count 4.06 mill/uL (4.20-5.40); White Blood Cell (WBC) Count 10.91 10x3/uL (4.8-10.8)
[2025-05-22 13:22] LABS: ALT (SGPT) 18 U/L (Less than 34); AST (SGOT) 19 U/L (11-34); Albumin 3.3 g/dL (3.1-4.5); Alkaline Phosphatase 91 U/L (40-110); Anion Gap 15 mmol/L (10-20); BUN (Urea Nitrogen) 18 mg/dL (9.8-20.1); Bilirubin, Total 0.5 mg/dL (0.3-1.2); Calc. Creatinine Clearance 0 mL/min (70-130); Calcium 8.2 mg/dL (7.8-10.44); Carbon Dioxide 22 mmol/L (23-31); Chloride 107 mmol/L (98-107); Globulin 3.2 g/dL (2.4-3.5); Glucose 108 mg/dL (83-110); Potassium 3.6 mmol/L (3.5-5.1); Sodium 140 mmol/L (136-145)
[2025-05-22 14:08] LABS: Anisocytosis SLIGHT = 6-15 cells HPF (0-5); Macrocytosis SLIGHT = 6-15 cells HPF (0-5); Platelet Adequacy Comment Platelets Decreased; Polychromasia SLIGHT = 2-3 cells HPF (0-2); Target Cells SLIGHT = 2-5 cells HPF (0-1)
[2025-05-22] MEDS ORDERED: Ketorolac Tromethamine 30 MG (1 mL) VIAL IVP PRN (15:14)
[2025-05-22] MEDS ORDERED: Melatonin 3 MG TAB PO PRN (15:14)
[2025-05-22] MEDS ORDERED: Magnesium Sulfate 2 GM in Sodium Chloride 0.9% 250 ML 250 ML IVPB SCH (15:45)
[2025-05-22] MEDS ORDERED: Magnesium 2 GM/50 ML BAG (IN WATER) ONE (15:52)
[2025-05-22] MEDS ORDERED: predniSONE 20 MG TAB ONE (15:52)
[2025-05-22] MEDS ORDERED: Azithromycin 500 MG VIAL ONE (15:52)
[2025-05-22] MEDS: Magnesium 2 GM/50 ML(in water) Premix IVPB SCH (15:56)
[2025-05-22] MEDS: Azithromycin 500 MG in Sodium Chloride 0.9% 250 ML 250 ML IVPB SCH (15:56)
[2025-05-22] MEDS: predniSONE 20 MG TAB PO SCH (15:56)
[2025-05-22 16:02] LABS: Magnesium 2.3 mg/dL (1.6-2.6)
[2025-05-22] MEDS ORDERED: Sacubitril 49 MG/Valsartan 51 MG TABLET ONE (20:53)
[2025-05-22] MEDS ORDERED: Famotidine 20 MG TAB PO SCH (21:00)
[2025-05-22] MEDS ORDERED: Acetaminophen 325 MG TAB ONE (21:01)
[2025-05-22] MEDS: Acetaminophen 325 MG TAB PO PRN (21:02)
[2025-05-22] MEDS: Sacubitril 49 MG/Valsartan 51 MG TABLET PO SCH (21:04)
[2025-05-22] MEDS: carBAMazepine 200 MG TAB PO SCH (22:33)
[2025-05-23] MEDS ORDERED: HYDROcodone/Acetaminophen 10/325 mg Tablet ONE (02:55)
[2025-05-23] MEDS: HYDROcodone/Acetaminophen 10/325 mg Tablet PO PRN (03:03)
[2025-05-23 03:43] LABS: #Basophils Less than 0.03 10x3/uL (0.0-0.2); #Eosinophils Less than 0.03 10x3/uL (0.0-0.7); #Monocytes 0.48 10x3/uL (0.11-0.59); #Neutrophils 7.68 10x3/uL (1.40-6.50); %Basophils 0.1 % (0.0-1.0); %Eosinophils 0.0 % (0.0-10.0); %Lymphocytes 14.1 % (21.0-51.0); %Monocytes 5.0 % (0.0-10.0); %Neutrophils 80.4 % (42.0-75.0); Hematocrit 34.6 % (36.0-47.0); Hemoglobin 12.2 g/dL (12.0-16.0); Mean Corpuscular Hemoglobin 29.8 pg (27.0-31.0); Mean Corpuscular Volume 84.6 fL (78.0-98.0); Platelet Count 124 10x3/uL (130-400); Red Blood Cell (RBC) Count 4.09 mill/uL (4.20-5.40); White Blood Cell (WBC) Count 9.56 10x3/uL (4.8-10.8)
[2025-05-23] MEDS ORDERED: Guaifenesin DM 100-10/5 ML UDCUP ONE (03:46)
[2025-05-23] MEDS: Guaifenesin DM 100-10/5 ML UDCUP PO PRN (03:54)
[2025-05-23 03:58] LABS: Anion Gap 13 mmol/L (10-20); BUN (Urea Nitrogen) 16 mg/dL (9.8-20.1); Calc. Creatinine Clearance 74 mL/min (70-130); Calcium 9.0 mg/dL (7.8-10.44); Carbon Dioxide 25 mmol/L (23-31); Chloride 109 mmol/L (98-107); Glucose 127 mg/dL (83-110); Potassium 3.9 mmol/L (3.5-5.1); Sodium 143 mmol/L (136-145)
[2025-05-23] MEDS ORDERED: Furosemide 40 MG TAB ONE (08:20)
[2025-05-23] MEDS ORDERED: Sacubitril 49 MG/Valsartan 51 MG TABLET ONE (08:21)
[2025-05-23] MEDS ORDERED: Pantoprazole 40 MG DR.TAB ONE (08:21)
[2025-05-23] MEDS ORDERED: predniSONE 20 MG TAB ONE ×2 (08:21→08:45)
[2025-05-23] MEDS ORDERED: Aspirin Chewable 81 MG TAB ONE (08:21)
[2025-05-23] MEDS: Furosemide 20 MG TAB PO SCH (08:55)
[2025-05-23] MEDS: Aspirin 81 mg Enteric Coated Tablet PO SCH (08:55)
[2025-05-23] MEDS: predniSONE 20 MG TAB PO SCH (08:55)
[2025-05-23] MEDS: Pantoprazole 40 MG DR.TAB PO SCH (08:56)
[2025-05-23] MEDS: Ferrous Sulfate 325 MG TAB PO SCH (08:58)
[2025-05-23 14:15] VITALS: BMI 20.1
[2025-05-23] MEDS: Cholecalciferol 1,000 UNITS (25 MCG) TAB PO SCH (21:08)
[2025-05-23] MEDS: Cyanocobalamin (Vitamin B-12) 1,000 MCG TAB PO SCH (21:08)
[2025-05-23] MEDS: Multivit, Therapeutic 1 TAB PO SCH (21:08)
[2025-05-23] MEDS: Folic Acid 1 MG TAB PO SCH (21:17)
[2025-05-24 04:59] LABS: #Basophils 0.03 10x3/uL (0.0-0.2); #Eosinophils Less than 0.03 10x3/uL (0.0-0.7); #Monocytes 0.47 10x3/uL (0.11-0.59); #Neutrophils 5.05 10x3/uL (1.40-6.50); %Basophils 0.4 % (0.0-1.0); %Eosinophils 0.2 % (0.0-10.0); %Lymphocytes 32.7 % (21.0-51.0); %Monocytes 5.7 % (0.0-10.0); %Neutrophils 60.8 % (42.0-75.0); Hematocrit 35.4 % (36.0-47.0); Hemoglobin 11.9 g/dL (12.0-16.0); Mean Corpuscular Hemoglobin 29.4 pg (27.0-31.0); Mean Corpuscular Volume 87.4 fL (78.0-98.0); Platelet Count 127 10x3/uL (130-400); Red Blood Cell (RBC) Count 4.05 mill/uL (4.20-5.40); White Blood Cell (WBC) Count 8.30 10x3/uL (4.8-10.8)
[2025-05-24 05:04] LABS: Anion Gap 11 mmol/L (10-20); BUN (Urea Nitrogen) 21 mg/dL (9.8-20.1); Calc. Creatinine Clearance 68 mL/min (70-130); Calcium 8.8 mg/dL (7.8-10.44); Carbon Dioxide 21 mmol/L (23-31); Chloride 110 mmol/L (98-107); Glucose 112 mg/dL (83-110); Magnesium 2.3 mg/dL (1.6-2.6); Potassium 3.9 mmol/L (3.5-5.1); Sodium 138 mmol/L (136-145)
[2025-05-24] MEDS: Carvedilol 3.125 MG TAB PO SCH (08:46)
[2025-05-24] MEDS: FLU (Fluad Triv) 25-26 (65UP)PF 45 MCG/0.5 ML Syringe IM ONE (22:09)
[2025-05-24] MEDS: PNEUMOC 20-VAL CONJ-DIP CRM/PF 0.5 ML SYRINGE IM ONE (22:10)
[2025-05-24] MEDS: Heparin 5,000 UNITS/ML VIAL SC SCH (22:13)
[2025-05-25 05:48] LABS: #Basophils Less than 0.03 10x3/uL (0.0-0.2); #Eosinophils 0.06 10x3/uL (0.0-0.7); #Monocytes 0.59 10x3/uL (0.11-0.59); #Neutrophils 2.83 10x3/uL (1.40-6.50); %Basophils 0.1 % (0.0-1.0); %Eosinophils 0.8 % (0.0-10.0); %Lymphocytes 51.4 % (21.0-51.0); %Monocytes 8.2 % (0.0-10.0); %Neutrophils 39.4 % (42.0-75.0); Hematocrit 36.4 % (36.0-47.0); Hemoglobin 12.7 g/dL (12.0-16.0); Mean Corpuscular Hemoglobin 29.5 pg (27.0-31.0); Mean Corpuscular Volume 84.5 fL (78.0-98.0); Platelet Count 162 10x3/uL (130-400); Red Blood Cell (RBC) Count 4.31 mill/uL (4.20-5.40); White Blood Cell (WBC) Count 7.20 10x3/uL (4.8-10.8)
[2025-05-25 05:56] LABS: Anion Gap 13 mmol/L (10-20); BUN (Urea Nitrogen) 20 mg/dL (9.8-20.1); Calc. Creatinine Clearance 62 mL/min (70-130); Calcium 9.0 mg/dL (7.8-10.44); Carbon Dioxide 26 mmol/L (23-31); Chloride 107 mmol/L (98-107); Glucose 129 mg/dL (83-110); Potassium 3.6 mmol/L (3.5-5.1); Sodium 142 mmol/L (136-145)
[2025-05-25 16:05] VITALS: BP 136/83; TEMP 97.9
== END 2025-05-25 16:10 | disposition home or self-care (01) | DRG 189 ==
LOC: ERS 12:24 → ERHOLD 14:23 → 2NO 05-23 13:35 → OBSVTOIN 05-23 17:38
PROVIDERS: ADMIT Internal Medicine; ATTEND Student in an Organized Health Care Education/Training Program
PROC: 3E03329 Introduction of Other Anti-infective into Peripheral Vein, Percutaneous Approach (ICD-10-PCS; principal; 2025-05-22)
PROC: 3E0234Z Introduction of Serum, Toxoid and Vaccine into Muscle, Percutaneous Approach (ICD-10-PCS; 2025-05-24)
PROC: 3E02340 Introduction of Influenza Vaccine into Muscle, Percutaneous Approach (ICD-10-PCS; 2025-05-24)
DX: J96.01 Acute respiratory failure with hypoxia (principal); J44.1 Chronic obstructive pulmonary disease with (acute) exacerbation; I50.42 Chronic combined systolic (congestive) and diastolic (congestive) heart failure; I25.10 Atherosclerotic heart disease of native coronary artery without angina pectoris; Z98.890 Other specified postprocedural states; Z95.1 Presence of aortocoronary bypass graft; Z88.8 Allergy status to other drugs, medicaments and biological substances; E78.5 Hyperlipidemia, unspecified; Z87.891 Personal history of nicotine dependence; I95.9 Hypotension, unspecified; Z79.899 Other long term (current) drug therapy; Z79.82 Long term (current) use of aspirin; Z23 Encounter for immunization; Z88.1 Allergy status to other antibiotic agents; I25.2 Old myocardial infarction; I08.1 Rheumatic disorders of both mitral and tricuspid valves
CPT/HCPCS: 36415; 71045; 71046; 80048; 80053; 83735; 83880; 84484; 85025; 93005; 94640; 96374; 96375; 96376; G0378; J0456; J1644; J3010; J3475; J7050; J7512; J7626; S0179